=== PATIENT | female | born 1950 | race Caucasian/White ===

== ENCOUNTER 2017-08-07 09:50 | Inpatient (IN) | payer MEDICARE ==
[~2017-08-07] VITALS: Ht 154.9 cm; Wt 50.3 kg
[2017-08-07] MEDS ORDERED: NO HOME MEDS (09:53)
[2017-08-07 10:22] LABS: BASOPHILS % (AUTO) 0.6 % (0-1); EOSINOPHILS # (AUTO) 0.1 X10'3 (0-0.9); EOSINOPHILS % (AUTO) 1.4 % (0-6); LYMPHOCYTES # (AUTO) 1.5 X10'3 (1.1-4.8); LYMPHOCYTES % (AUTO) 33.5 % (21-51); MEAN CORPUSCULAR HGB CONC 33.8 % (33.0-36.5); MEAN CORPUSCULAR VOLUME 88.7 FL (78-98); MEAN PLATELET VOLUME 8.4 FL (7.4-10.4); MONOCYTES # (AUTO) 0.4 X10'3 (0-0.9); MONOCYTES % (AUTO) 9.3 % (2-12); NEUTROPHILS # (AUTO) 2.6 X10'3 (1.8-7.7); NEUTROPHILS % (AUTO) 55.2 % (42-75); PRE OP HEMOGLOBIN 14.5 g/dL (12.0-16.0); PRE OP PLATELET COUNT 237 X10'3 (140-440); RED BLOOD COUNT 4.85 X10'6 (4.20-5.60); RED CELL DISTRIBUTION WIDTH 12.7 % (11.5-14.5)
[2017-08-07 10:28] LABS: CLARITY,URINE CLEAR (Clear); COLOR,URINE YELLOW (Yellow); GLUCOSE, URINE NEGATIVE (Neg); KETONES,URINE 15 mg/dl (Neg); LEUKOCYTE ESTERASE ,URINE SMALL (Neg); NITRITES, URINE NEGATIVE (Neg); OCCULT BLOOD,URINE TRACE-INTACT (Neg); PROTEIN,URINE NEGATIVE (Neg); UROBILINOGEN,URINE 0.2 E.U/dL (0.2-1.0)
[2017-08-07 10:32] LABS: UA COLLECTION TYPE CLN CATCH MIDSTREAM
[2017-08-07 10:33] LABS: PRE OP PROTIME 10.3 SECONDS (9.0-12.0)
[2017-08-07 10:39] LABS: SQUAMOUS EPITHELIAL CELL,UR FEW /LPF (FEW)
[2017-08-07 10:40] LABS: ALBUMIN 4.5 G/DL (3.4-5.0); ALBUMIN/GLOBULIN RATIO 1.3 (1.1-1.5); ALKALINE PHOSPHATASE 78 IU/L (46-116); BLOOD UREA NITROGEN 12 MG/DL (7-18); BUN/CREATININE RATIO 16.4 (6.6-38.0); CALCIUM 9.7 MG/DL (8.5-10.1); CHLORIDE 101 MMOL/L (99-107); CREATININE 0.73 MG/DL (0.40-0.90); PRE OP ALT 24 U/L (30-65); PRE OP ANION GAP 11 (8-16); PRE OP AST 21 U/L (10-37); PRE OP BILIRUB, TOTAL 0.5 MG/DL (0.0-1.0); PRE OP GLUCOSE 86 MG/DL (70-104); PRE OP POTASSIUM 4.3 MMOL/L (3.4-5.1); PRE OP SODIUM 140 MMOL/L (135-145); TOTAL CARBON DIOXIDE 27.7 MMOL/L (24-32); TOTAL PROTEIN 8.1 G/DL (6.4-8.2); eGFR 79 ML/MIN
[2017-08-07 10:40] LABS: BACTERIA,URINE 2+ /HPF (Neg); RBC,URINE 0-2 /HPF (0-2); WBC,URINE 0-4 /HPF (0-4)
[2017-08-14] VITALS (18 sets, daily range): BP systolic 99–141; BP diastolic 54–74
[2017-08-14] MEDS ORDERED: ringers solution, lacted 1,000 ML IV SCH ×2 (05:00→11:41)
[2017-08-14] MEDS ORDERED: famotidine 20mg tablet PO ONE (05:30)
[2017-08-14] MEDS ORDERED: gabapentin 300mg capsule PO ONE (05:30)
[2017-08-14] MEDS ORDERED: metoclopramide 5 mg/ml inj IV ONE (05:30)
[2017-08-14] MEDS ORDERED: VANCOMYCIN INJ 1000 MG in NORMAL SALINE 250ml IV.SOLN IV ONE (05:30)
[2017-08-14] MEDS ORDERED: oxyCODONE SR 10mg (sust. release) tab PO ONE (05:30)
[2017-08-14] MEDS ORDERED: Cefazolin 2GM/100ML NS IVPB IV ONE (05:30)
[2017-08-14] MEDS ORDERED: tranexamic acid inj. 1,000 MG in normal saline 100ml IV soln 90 ML IV ONE (05:30)
[2017-08-14] MEDS ORDERED: acetaminophen 325mg tablet PO ONE (05:30)
[2017-08-14] MEDS ORDERED: celeCOXIB 100mg capsule PO ONE (05:30)
[2017-08-14] MEDS ORDERED: magnesium hydroxide 30ml (MOM) UD suspension PO PRN (06:45)
[2017-08-14] MEDS: potassium cl 20mEq in 1/2 NS 1,000 ML IV SCH ×3 (06:45→23:37)
[2017-08-14] MEDS ORDERED: acetaminophen 325mg tablet PO PRN (06:45)
[2017-08-14] MEDS ORDERED: diphenhydrAMINE 25mg capsule PO PRN ×2 (06:45)
[2017-08-14] MEDS ORDERED: bisacodyl 10mg suppository rectal RC PRN (06:45)
[2017-08-14] MEDS ORDERED: ondansetron/PF 4mg/2ml inj IV PRN ×2 (06:45→11:45)
[2017-08-14] MEDS ORDERED: MORPHINE 2MG in 2ml NS syringe IV PRN (06:45)
[2017-08-14] MEDS ORDERED: LIDOcaine 1% (10mg/ml) 2ml vial ONE (07:33)
[2017-08-14] MEDS: multivitamins, therapeutics tablet PO SCH (08:00)
[2017-08-14] MEDS ORDERED: vancomycin/NS 1 GM ADD-VANTAGE 250 ML IV SCH (08:00)
[2017-08-14] MEDS: gabapentin 300mg capsule PO SCH ×3 (08:00→20:10)
[2017-08-14] MEDS: ascorbic acid 500mg tablet PO SCH ×2 (08:00→20:10)
[2017-08-14] MEDS ORDERED: ceFAZolin 1GM/D5W- ADD-VANTAGE 50 ML IV SCH (08:00)
[2017-08-14] MEDS ORDERED: oxyCODONE/APAP 10/325mg tablet PO SCH (08:00)
[2017-08-14] MEDS: aspirin 325mg tablet PO SCH (08:30)
[2017-08-14] MEDS ORDERED: vancomycin 1,000mg inj ONE (08:47)
[2017-08-14] MEDS ORDERED: epiNEPHrine 1 mg/ml inj ONE (08:47)
[2017-08-14] MEDS ORDERED: cloNIDine hcl/PF 100mcg/ml inj ONE (08:47)
[2017-08-14] MEDS ORDERED: ketorolac trometh. 30mg/ml inj. ONE (08:47)
[2017-08-14] MEDS ORDERED: ROPIVAcaine 0.5% (5mg/ml) 30ml vial ONE ×2 (08:48→10:15)
[2017-08-14] MEDS ORDERED: propofol 1000mg/100ml bottle 100 ML IV ONE (08:55)
[2017-08-14] MEDS ORDERED: BUPIVAcaine 0.5% inj/PF 30 ml vial ONE (08:55)
[2017-08-14] MEDS ORDERED: midazolam 2 mg/2 ml injection ONE (08:58)
[2017-08-14] MEDS ORDERED: morphine /PF 1mg/ml 10ml inj. ONE (08:59)
[2017-08-14] MEDS ORDERED: dexamethasone sod phosphate 4mg/ml inj. ONE (10:12)
[2017-08-14] MEDS ORDERED: ondansetron/PF 4mg/2ml inj ONE (10:12)
[2017-08-14] MEDS ORDERED: ePHEDrine 50MG/ML INJ. ONE (10:19)
[2017-08-14] MEDS ORDERED: proCHLORperazine 10 MG/2 ml inj IV PRN (11:45)
[2017-08-14] MEDS ORDERED: HYDROmorphone inj. 0.5 MG/0.5 ML DISP.SYRIN IV PRN (11:45)
[2017-08-14] MEDS ORDERED: fentaNYL/PF 50MCG/1 ML 2ML syringe IV PRN (11:45)
[2017-08-14] MEDS: ceFAZolin 1GM/D5W- ADD-VANTAGE 50 ML IV SCH (20:10)
[2017-08-14] MEDS: sennosides 8.6mg tablet PO SCH (20:10)
[2017-08-14] MEDS ORDERED: vancomycin/NS 1 GM ADD-VANTAGE 250 ML IV ONE (23:15)
[2017-08-15 02:00] VITALS: BP 93/55
[2017-08-15] MEDS: ceFAZolin 1GM/D5W- ADD-VANTAGE 50 ML IV SCH (03:58)
[2017-08-15 05:00] VITALS: BP 94/61
[2017-08-15 05:15] LABS: BASOPHILS % (AUTO) 0.3 % (0-1); EOSINOPHILS # (AUTO) 0.1 X10'3 (0-0.9); EOSINOPHILS % (AUTO) 1.3 % (0-6); HEMATOCRIT 30.7 % (35.0-45.0); HEMOGLOBIN 10.3 g/dl (12.0-16.0); LYMPHOCYTES # (AUTO) 1.3 X10'3 (1.1-4.8); MEAN CORPUSCULAR HEMOGLOBIN 30.2 PG (27.0-31.0); MEAN CORPUSCULAR HGB CONC 33.6 % (33.0-36.5); MEAN CORPUSCULAR VOLUME 90.1 FL (78-98); MEAN PLATELET VOLUME 7.9 FL (7.4-10.4); MONOCYTES # (AUTO) 0.6 X10'3 (0-0.9); MONOCYTES % (AUTO) 7.5 % (2-12); NEUTROPHILS # (AUTO) 5.5 X10'3 (1.8-7.7); NEUTROPHILS % (AUTO) 73.9 % (42-75); PLATELET COUNT 174 X10'3 (140-440); RED BLOOD COUNT 3.41 X10'6 (4.20-5.60); RED CELL DISTRIBUTION WIDTH 13.6 % (11.5-14.5); WHITE BLOOD COUNT 7.4 X10'3 (4.5-11.0)
[2017-08-15] MEDS: oxyCODONE/APAP 10/325mg tablet PO PRN ×3 (05:25→14:19)
[2017-08-15 05:42] LABS: ANION GAP 5 (8-16); CHLORIDE 106 MMOL/L (99-107); SODIUM 139 MMOL/L (135-145); TOTAL CARBON DIOXIDE 27.6 MMOL/L (24-32)
[2017-08-15] MEDS: multivitamins, therapeutics tablet PO SCH (07:56)
[2017-08-15] MEDS: gabapentin 300mg capsule PO SCH ×3 (07:56→20:34)
[2017-08-15] MEDS: aspirin 325mg tablet PO SCH (07:56)
[2017-08-15] MEDS: ascorbic acid 500mg tablet PO SCH ×2 (07:56→20:34)
[2017-08-15 10:13] VITALS: BP 101/49
[2017-08-15] MEDS: potassium cl 20mEq in 1/2 NS 1,000 ML IV SCH ×2 (12:05→22:27)
[2017-08-15] MEDS ORDERED: oxyCODONE/APAP 10/325mg tablet PO ONE (12:55)
[2017-08-15 13:47] VITALS: BP 93/47
[2017-08-15] MEDS: oxyCODONE/APAP 10/325mg tablet PO SCH ×2 (17:39→20:36)
[2017-08-15 18:00] VITALS: BP 112/73
[2017-08-15] MEDS: celeCOXIB 100mg capsule PO SCH (20:34)
[2017-08-15] MEDS: sennosides 8.6mg tablet PO SCH (20:35)
[2017-08-15 22:00] VITALS: BP 93/44
[2017-08-16] MEDS: oxyCODONE/APAP 10/325mg tablet PO SCH ×3 (00:12→07:05)
[2017-08-16 05:00] VITALS: BP 104/53
[2017-08-16 05:16] LABS: BASOPHILS % (AUTO) 0.3 % (0-1); EOSINOPHILS # (AUTO) 0.1 X10'3 (0-0.9); EOSINOPHILS % (AUTO) 2.2 % (0-6); HEMATOCRIT 29.9 % (35.0-45.0); HEMOGLOBIN 10.1 g/dl (12.0-16.0); LYMPHOCYTES # (AUTO) 1.5 X10'3 (1.1-4.8); LYMPHOCYTES % (AUTO) 25.2 % (21-51); MEAN CORPUSCULAR HEMOGLOBIN 30.2 PG (27.0-31.0); MEAN CORPUSCULAR HGB CONC 33.8 % (33.0-36.5); MEAN CORPUSCULAR VOLUME 89.3 FL (78-98); MEAN PLATELET VOLUME 8.5 FL (7.4-10.4); MONOCYTES # (AUTO) 0.6 X10'3 (0-0.9); MONOCYTES % (AUTO) 10.2 % (2-12); NEUTROPHILS # (AUTO) 3.6 X10'3 (1.8-7.7); NEUTROPHILS % (AUTO) 62.1 % (42-75); PLATELET COUNT 188 X10'3 (140-440); RED BLOOD COUNT 3.35 X10'6 (4.20-5.60); RED CELL DISTRIBUTION WIDTH 14.1 % (11.5-14.5); WHITE BLOOD COUNT 5.8 X10'3 (4.5-11.0)
[2017-08-16] MEDS: aspirin 325mg tablet PO SCH (07:04)
[2017-08-16] MEDS: gabapentin 300mg capsule PO SCH (07:04)
[2017-08-16] MEDS: multivitamins, therapeutics tablet PO SCH (07:04)
[2017-08-16] MEDS: ascorbic acid 500mg tablet PO SCH (07:05)
[2017-08-16] MEDS: celeCOXIB 100mg capsule PO SCH (07:05)
== END 2017-08-16 11:25 | disposition home or self-care (01) | DRG 470 ==
LOC: EDSTATUS 09:50 → PAS IN 08-14 06:51 → EDSTATUS 08-14 10:30 → ORTHO 4S 08-14 12:43
PROVIDERS: ADMIT Orthopaedic Surgery; ATTEND Orthopaedic Surgery
PROC: 3E0T3BZ Introduction of Anesthetic Agent into Peripheral Nerves and Plexi, Percutaneous Approach (ICD-10-PCS; 2017-08-14)
PROC: 0SRC0J9 Replacement of Right Knee Joint with Synthetic Substitute, Cemented, Open Approach (ICD-10-PCS; principal; 2017-08-14 09:20)
DX: M17.11 Unilateral primary osteoarthritis, right knee (principal); D62 Acute posthemorrhagic anemia; M25.761 Osteophyte, right knee; Z88.1 Allergy status to other antibiotic agents; Z79.899 Other long term (current) drug therapy; Z79.01 Long term (current) use of anticoagulants; Z79.82 Long term (current) use of aspirin; Z80.9 Family history of malignant neoplasm, unspecified; Z56.0 Unemployment, unspecified
CPT/HCPCS: 36415; 71046; 73560; 80051; 80053; 81001; 85025; 85610; 85730; 86885; 86900; 86901; 87070; 87077; 87088; 87186; 93005; 97110; 97116; 97162; 97530; A6449; A6455; A7000; C1713; C1758; C1776; J0171; J0690; J0735; J1100; J1885; J2250; J2274; J2405; J2704; J2765; J2795; J3370; J3490; J7030; J7120; Q0163

== ENCOUNTER 2017-09-08 09:11 | Emergency (ER) | payer MEDICARE ==
[~2017-09-08] VITALS: Ht 154.9 cm; Wt 52.4 kg
[~2017-09-08 09:11] MED LIST: NO HOME MEDS
[2017-09-08 09:42] LABS: BASOPHILS # (AUTO) 0.1 X10'3 (0-0.2); BASOPHILS % (AUTO) 0.7 % (0-1); EOSINOPHILS # (AUTO) 0.1 X10'3 (0-0.9); EOSINOPHILS % (AUTO) 0.4 % (0-6); HEMATOCRIT 34.2 % (35.0-45.0); HEMOGLOBIN 11.7 g/dl (12.0-16.0); LYMPHOCYTES # (AUTO) 1.2 X10'3 (1.1-4.8); MEAN CORPUSCULAR HEMOGLOBIN 30.5 PG (27.0-31.0); MEAN CORPUSCULAR HGB CONC 34.3 % (33.0-36.5); MEAN PLATELET VOLUME 7.1 FL (7.4-10.4); MONOCYTES # (AUTO) 0.8 X10'3 (0-0.9); NEUTROPHILS # (AUTO) 11.3 X10'3 (1.8-7.7); NEUTROPHILS % (AUTO) 83.9 % (42-75); PLATELET COUNT 365 X10'3 (140-440); RED BLOOD COUNT 3.84 X10'6 (4.20-5.60); RED CELL DISTRIBUTION WIDTH 14.3 % (11.5-14.5); WHITE BLOOD COUNT 13.5 X10'3 (4.5-11.0)
[2017-09-08 09:50] LABS: CLARITY,URINE CLOUDY (Clear); GLUCOSE, URINE NEGATIVE (Neg); KETONES,URINE TRACE mg/dl (Neg); LEUKOCYTE ESTERASE ,URINE NEGATIVE (Neg); NITRITES, URINE NEGATIVE (Neg); OCCULT BLOOD,URINE MODERATE (Neg); PH,URINE 5.5 (4.8-8.0); PROTEIN,URINE 30 mg/dl (Neg)
[2017-09-08 09:51] LABS: COLOR,URINE DARK YELLOW (Yellow); UA COLLECTION TYPE CLN CATCH MIDSTREAM
[2017-09-08 09:52] LABS: ALBUMIN 3.6 G/DL (3.4-5.0); ANION GAP 11 (8-16); BILIRUBIN,TOTAL 0.5 MG/DL (0.1-1.0); BLOOD UREA NITROGEN 10 MG/DL (7-18); BUN/CREATININE RATIO 13.3 (6.6-38.0); CALCIUM 9.1 MG/DL (8.5-10.1); CHLORIDE 102 MMOL/L (99-107); CREATININE 0.75 MG/DL (0.40-0.90); GLUCOSE 127 MG/DL (70-104); POTASSIUM 3.5 MMOL/L (3.5-5.1); SODIUM 140 MMOL/L (135-145); TOTAL CARBON DIOXIDE 26.8 MMOL/L (24-32); TOTAL PROTEIN 8.1 G/DL (6.4-8.2); eGFR 77 ML/MIN
[2017-09-08 09:53] LABS: ALANINE AMINOTRANSFERASE 12 U/L (12-78); ALBUMIN/GLOBULIN RATIO 0.8 (1.1-1.5); ALKALINE PHOSPHATASE 105 IU/L (46-116); ASPARTATE AMINO TRANSFERASE 10 U/L (10-37); PROTHROMBIN TIME 10.4 SECONDS (9.0-12.0)
[2017-09-08 10:13] LABS: RBC,URINE 0-2 /HPF (0-2); WBC,URINE 0-4 /HPF (0-4)
[2017-09-08 10:14] LABS: AMORPHOUS URATES 1+; BACTERIA,URINE FEW /HPF (Neg); MUCUS STRANDS MANY /LPF (Neg); SQUAMOUS EPITHELIAL CELL,UR FEW /LPF (FEW)
[2017-09-08] MEDS ORDERED: METR500T4 PO (11:15)
[2017-09-08] MEDS ORDERED: CIPR-259 PO (11:15)
[2017-09-08 11:27] VITALS: BP 118/64
== END 2017-09-08 11:29 | disposition home or self-care (01) ==
LOC: ER 09:11
DX: K57.92 Diverticulitis of intestine, part unspecified, without perforation or abscess without bleeding (principal); G89.29 Other chronic pain; Z98.890 Other specified postprocedural states; Z88.1 Allergy status to other antibiotic agents
CPT/HCPCS: 36415; 74176; 80053; 81001; 85025; 85610; 99285

== ENCOUNTER 2023-05-29 07:14 | Emergency (ER) | payer MEDICARE ==
[~2023-05-29] VITALS: Ht 154.9 cm; Wt 55.7 kg
[2023-05-29 07:15] VITALS: TEMP 97.8
[2023-05-29 08:10] LABS: BILIRUBIN,URINE SMALL (Neg); CLARITY,URINE SLIGHTLY CLOUDY (Clear); COLOR,URINE YELLOW (Yellow); GLUCOSE, URINE NEGATIVE (Neg); KETONES,URINE 15 mg/dl (Neg); LEUKOCYTE ESTERASE ,URINE NEGATIVE (Neg); NITRITES, URINE NEGATIVE (Neg); OCCULT BLOOD,URINE SMALL (Neg); PH,URINE 5.5 (4.8-8.0); PROTEIN,URINE TRACE mg/dl (Neg); UROBILINOGEN,URINE 0.2 E.U/dL (0.2-1.0)
[2023-05-29 08:12] LABS: BASOPHILS % (AUTO) 0.4 % (0-1); EOSINOPHILS % (AUTO) 0 % (0-6); HEMATOCRIT 41.1 % (35.0-45.0); HEMOGLOBIN 13.6 g/dl (12.0-16.0); LYMPHOCYTES # (AUTO) 1.8 X10'3 (1.1-4.8); MEAN CORPUSCULAR HEMOGLOBIN 29.3 PG (27.0-31.0); MEAN CORPUSCULAR HGB CONC 33.1 g/dL (33.0-36.5); MEAN CORPUSCULAR VOLUME 88.3 FL (78-98); MEAN PLATELET VOLUME 8.3 FL (7.4-10.4); MONOCYTES % (AUTO) 7.4 % (2-12); NEUTROPHILS # (AUTO) 10.9 X10'3 (1.8-7.7); NEUTROPHILS % (AUTO) 79.2 % (42-75); PLATELET COUNT 273 X10'3 (140-440); RED BLOOD COUNT 4.65 X10'6 (4.20-5.60); RED CELL DISTRIBUTION WIDTH 13.5 % (11.5-14.5); WHITE BLOOD COUNT 13.7 X10'3 (4.5-11.0)
[2023-05-29] MEDS: ondansetron/PF 4mg/2ml inj IV ONE (08:15)
[2023-05-29] MEDS: morphine 4 MG/ML inj SYRINge IV PRN (08:15)
[2023-05-29] MEDS: normal saline 1000ML IV soln IVB ONE (08:15)
[2023-05-29 08:29] LABS: ALANINE AMINOTRANSFERASE 15 U/L (12-78); ALBUMIN 3.8 G/DL (3.4-5.0); ALBUMIN/GLOBULIN RATIO 0.9 (1.1-1.5); ALKALINE PHOSPHATASE 78 IU/L (46-116); ANION GAP 4 (8-16); ASPARTATE AMINO TRANSFERASE 14 U/L (10-37); BILIRUBIN,DIRECT 0.2 MG/DL (0-0.3); BILIRUBIN,TOTAL 0.9 MG/DL (0.1-1.0); BLOOD UREA NITROGEN 9 MG/DL (7-18); BUN/CREATININE RATIO 11.5 (10.0-20.0); CALCIUM 8.9 MG/DL (8.5-10.1); CHLORIDE 104 MMOL/L (99-107); CREATININE 0.78 MG/DL (0.40-0.90); GLUCOSE 102 MG/DL (70-104); LIPASE 22 U/L (16-77); POTASSIUM 3.6 MMOL/L (3.5-5.1); SODIUM 141 MMOL/L (135-145); TOTAL CARBON DIOXIDE 32.6 MMOL/L (24-32); TOTAL PROTEIN 7.9 G/DL (6.4-8.2); eCRCL 48 ML/MIN; eGFR 72 ML/MIN
[2023-05-29 08:32] LABS: UA COLLECTION TYPE CLN CATCH MIDSTREAM
[2023-05-29 08:36] LABS: RBC,URINE 0-2 /HPF (0-2)
[2023-05-29 08:37] LABS: BACTERIA,URINE FEW /HPF (Neg)
[2023-05-29 08:40] LABS: SQUAMOUS EPITHELIAL CELL,UR MODERATE /LPF (FEW)
[2023-05-29 08:42] LABS: HYALINE CASTS 0-3 /LPF (NEGATIVE)
[2023-05-29] MEDS: metroNIDAZOLE-Flagyl 500mg/NS 100 ML IV STA (09:43)
[2023-05-29] MEDS: levoFLOXACIN-Levaquin 750MG/D5 150 ML IV STA (09:43)
[2023-05-29] MEDS ORDERED: METR-159 PO (10:26)
[2023-05-29] MEDS ORDERED: LEVO-65 PO (10:26)
[2023-05-29 10:42] VITALS: BP 117/59; PULSE 74; RESP 16; O2SAT 97
== END 2023-05-29 11:28 | disposition home or self-care (01) ==
LOC: ER 07:14
DX: K57.92 Diverticulitis of intestine, part unspecified, without perforation or abscess without bleeding (principal); N39.0 Urinary tract infection, site not specified; Z88.8 Allergy status to other drugs, medicaments and biological substances; Z79.899 Other long term (current) drug therapy; Z98.890 Other specified postprocedural states; Z90.89 Acquired absence of other organs
CPT/HCPCS: 36415; 74176; 80048; 80076; 81001; 83690; 84484; 85025; 87088; 96365; 96368; 96375; 99285; J1956; J2270; J2405; J3490; J7030